=== PATIENT | female | born 1945 | race Caucasian/White ===

== ENCOUNTER 2020-08-17 23:57 | Observation (INO) ==
--- NOTE | 2020-08-18 00:18 | ERNOTE ---
Neuro HPI ER Record Date of Service: 08/18/20 Presenting Symptoms: other - Dizzy and double vision Time Seen by Provider: 08/18/20 00:08 Source: patient Exam Limitations: no limitations Immunizations: IMMUNIZATION HX Immunizations Up to Date Yes History of Influenza Vaccine No Hx Pneumococcal Vaccination No Allergies/Adverse Reactions: Allergies Allergy/AdvReac Type Severity Reaction Status Date / Time codeine [Codeine] AdvReac Mild rash Verified 08/18/20 00:19 Home Medications: HOME MEDICATIONS Sertraline HCl [Zoloft] 150 mg PO DAILY 11/17/12 [Last Taken Unknown] Clonazepam 1 mg PO HS 09/22/19 [Last Taken Unknown] miscellaneous medical supply See Rx Instructions .ROUTE .MEDSUPPLY #1 ea 09/22/19 [Last Taken Unknown] Synthroid 50 mcg tablet 50 mcg PO DAILY #45 tab NS 08/02/20 [Last Taken Unknown] Aspirin [Aspirin Enteric Coated] 325 mg PO DAILY 08/18/20 [Last Taken Unknown] - History of Present Illness Narrative: This patient is a 75-year-old female who arrived by ambulance with dizziness and double vision. She said that all was well tonight until about 1015. She reported that she was eating ice cream with her and felt dizzy and had double vision. She could not tell me how long it lasted. She apparently had gone into the bathroom and was found mumbling in the bathroom. The ambulance was called. She was alert and oriented when they arrived. She had an episode that they described as word salad. She reportedly started talking nonsense and then mumbling. It resolved. She was on the monitor at the time and had no arrhythmia. Her blood sugar was in the 200s. She reports that she is doing fine at this time. She denies fever, cough or cold symptoms. She does not have a headache. She has no vision symptoms at this time. She has no nausea or vomiting. She denies numbness or weakness of the extremities. She had recent stents placed. She has a history of atrial fibrillation. She is currently off of her anticoagulant. Review of Systems - Review of Systems Constitutional: Absent: recent illness, fever EYE: Present: see HPI ENT: Absent: ear pain, nose congestion, nasal drainage, sore throat Respiratory: Absent: shortness of breath, cough Cardiology: Absent: chest pain, palpitations, syncope Gastrointestinal/Abdominal: Absent: nausea, vomiting, diarrhea, abdominal pain Genitourinary: Absent: frequency, pain, dysuria Musculoskeletal: Present: no symptoms reported Skin: Present: no symptoms reported Neurological: Present: dizziness/light-headedness. Absent: headache, weakness, numbness Endocrine: Present: no symptoms reported Hematologic/Lymphatic: Present: no symptoms reported Psych: Present: no symptoms reported Medical History (Last Reviewed 08/18/20 @ 00:16 by Preston Renteria MD) Subarachnoid hemorrhage (Resolved) Stage III chronic kidney disease (Chronic) History of non-ST elevation myocardial infarction (NSTEMI) (Chronic) Pulmonary nodule (Chronic) Onset Date: ~12/14/17 Hypothyroidism (Chronic) Onset Date: Unknown GERD (gastroesophageal reflux disease) (Chronic) Onset Date: Unknown Easy bruising (Chronic) Onset Date: ~06/03/15 Atrial fibrillation (Chronic) Onset Date: ~08/22/17 Allergic rhinitis (Chronic) Onset Date: ~04/10/14 Anticoagulated on warfarin Anxiety Atrial flutter Depression History of cardioversion History of meningitis Surgical History: Surgical History (Last Reviewed 08/18/20 @ 00:16 by Preston Renteria MD) History of arthroscopic knee surgery Onset Date: Unknown bilat History of exploratory laparotomy Onset Date: ~1969 ovarian abscess drainage Hx of cholecystectomy Onset Date: Unknown Family History: Family History (Last Reviewed 08/18/20 @ 00:16 by Preston Renteria MD) Sister Cancer Other No pertinent family history Social History: (Last Reviewed 08/18/20 @ 00:16 by Preston Renteria MD) Social History: Marital status: household members: spouse current occupational status: retired Service: No Tobacco: Smoking Status: Never smoker Alcohol: alcohol intake: current Substance Use: substance use type: does not use Dietary Habits: caffeine: No Physical Exam - Physical Exam General Appearance: Present: wd/wn, alert, no apparent distress Head Exam: Present: normal inspection, no evidence of injury Eye Exam: Normal inspection: bilateral Ears, Nose, Throat: Present: normal ENT inspection Neck: Present: normal inspection, supple. Absent: lymphadenopathy (R), lymphadenopathy (L) Respiratory: Present: no respiratory distress, normal breath sounds, lungs clear Cardiovascular/Chest: Present: regular rate, rhythm, no murmur Gastrointestinal/Abdominal: Present: normal bowel sounds, nontender, nondistended, soft, no organomegaly Extremity Exam: Present: normal inspection, non-tender, normal range of motion, no edema Neurological Exam: Present: alert, oriented, normal mood/affect, no motor/sensory deficits, other - She has no facial weakness or asymmetry. She has no drift of the upper or lower extremities. She has no decrease in continuous still operator strength or push/pull of the feet. Sensation is intact to light touch. Skin Exam: Present: normal color, warm/dry. Absent: skin rash Progress - Date and Time Seen: Date and Time: 08/18/20 01:55 Dr. Gibbs agreed to keep the patient for observation. - Results and Orders Patient's Lab Results:: I have reviewed the patient's lab results. Results and Orders: Laboratory Tests 08/18/20 08/18/20 08/18/20 00:15 00:15 00:37 WBC 7.6 RBC 4.65 Hgb 14.1 Hct 42.6 MCV 91.6 MCH 30.3 MCHC 33.1 RDW 12.3 Plt Count 248 MPV 10.2 Immature Gran % (Auto) 0.40 Immature Gran # (Auto) 0.03 Neutrophils % 47.7 Lymphocytes % 41.2 Monocytes % 7.4 Eosinophils % 2.8 Basophils % 0.5 Nucleated RBC % 0.0 Neutrophils # 3.6 Lymphocytes # 3.12 Monocytes # 0.6 Eosinophils # 0.2 Absolute Basophils 0.0 Sodium 143 H Plasma Sodium 144 H Potassium 3.6 Chloride 107 H Carbon Dioxide 30.2 Anion Gap 9.4 BUN 16 Creatinine 1.06 Est GFR (Non-Af Amer) 54 L BUN/Creatinine Ratio 15.1 Random Glucose 153 H Calcium 9.0 Calcium Adj for Albumin 9.0 Total Bilirubin 0.3 AST 20 ALT 27 Alkaline Phosphatase 110 Total Protein 7.3 Albumin 3.6 Urine Color Yellow Urine Appearance Clear Urine pH 6.5 Ur Specific [place] 1.020 Urine Protein Negative Urine Glucose (UA) Negative Urine Ketones Negative Urine Blood Negative Urine Nitrate Negative Urine Bilirubin Negative Urine Urobilinogen Normal Ur Leukocyte Esterase Negative Urine RBC None seen Urine WBC None seen Ur Epithelial Cells None seen Urine Bacteria None seen Urine Culture Comments No culture indicated - Vital Signs Patient's Vital Signs:: I have reviewed the patient's vital signs. Vital Signs: Vital Signs 08/18/20 00:00 Temperature 36.2 C Pulse Rate 70 Respiratory Rate 14 Blood Pressure 181/75 H O2 Sat by Pulse Oximetry 96 - EKG EKG #1 EKG read: Interp. by me EKG Comments: Atrial paced rhythm Rate 73 Left bundle branch block Compared to an EKG dated 11/15/2019, the rhythm is now paced. - CT/Ultrasound CT/Ultrasound Narrative: CT HEAD WITHOUT FINDINGS: No intracranial mass, midline shift, hydrocephalus, or acute hemorrhage. Mild atrophy-like change. The visualized paranasal sinuses and mastoid air cells are normal. The orbits are unremarkable. No skull fracture. IMPRESSION: 1. No acute intracranial findings - Progress/Reassessment Chief Complaint: Altered Mental Status Departure Clinical Impression: Spell of altered cognition - Departure Disposition: Still a patient Condition: Stable Referrals: Mary Jo Jose DO [Primary Care Provider] -
[2020-08-18 00:22] LABS: Hematocrit 42.6 % (37.0-47.0); Hemoglobin 14.1 gm/dL (12.5-16.0); Mean Cell Volume 91.6 fl (78-100); Mean Corpuscular Hemoglobin 30.3 pg (27-31); Mean Corpuscular Hgb Conc 33.1 g/dl (32-36); Mean Platelet Volume 10.2 fl (8-12.5); Neutrophil # 3.6 K/mm3 (1.3-6.0); Neutrophil % 47.7 % (42-75.0); Platelet Count 248 K/mm3 (150-450); Red Blood Count 4.65 M/mm3 (4.2-5.4); Red Cell Distribution Width 12.3 % (11.5-14.0); White Blood Count 7.6 K/mm3 (4.0-10.5)
[2020-08-18 00:40] LABS: Albumin * 3.6 gm/dl (3.4-5.0); Anion Gap 9.4 mmol/L (6.8-13.8); BUN/Creatinine Ratio 15.1 (9.0-21.6); Bilirubin, Total 0.3 mg/dL (0.0-1.1); Carbon Dioxide 30.2 mmol/L (24-32.6); Potassium 3.6 mmol/L (3.4-4.6); Total Protein 7.3 gm/dL (6.2-8.2)
[2020-08-18 00:57] LABS: Urine Bilirubin Negative (NEGATIVE); Urine Blood Negative /ul (NEGATIVE); Urine Ketone Negative (NEGATIVE); Urine Nitrite Negative (NEGATIVE); Urine Protein Negative (NEGATIVE); Urine Urobilinogen Normal (NORMAL); Urine pH 6.5 pH (5.0-7.0)
[2020-08-18 00:58] LABS: Urine Appearance Clear (CLEAR); Urine Bacteria None Seen; Urine Color Yellow; Urine RBC None Seen /hpf (0-5); Urine WBC None Seen /hpf (0-5)
--- NOTE | 2020-08-18 09:29 | HPDIS ---
Chief Complaint - Chief Complaint Date of Service: 08/18/20 Time of Service: 08:15 Chief Complaint: syncopal episode History of Present Illness: Patient with PMHx of cardiac stent placed last month, afib, CKD, subarachnoid hemorrhage was home and developed sudden dizziness and double vision. Her 's pamphlet distributor found her in the bathroom, and she was speaking nonsense. EMS was called, who also reported word salad. This lasted for about 20 minutes. She had some med adjustments last month with anticoagulants. She's currently on 325 mg aspirin, and will be resuming her eliquis on Aug 24. She has not had this happen in the past. She denies recent fever, CP, SOB, diarrhea, weakness, skin changes. No alcohol intake. Workup in the ED did not find significant abnormality. EKG showed paced rhythm. Her pacemaker company was no t notified of any transmission abnormalities from her pacemaker. COVID negative. On my exam this morning, she is coherent and feels like she is at her baseline, looking forward to going home today. Medical History (Last Reviewed 08/18/20 @ 03:46 by Maude Tinoco RN) Subarachnoid hemorrhage (Resolved) Stage III chronic kidney disease (Chronic) History of non-ST elevation myocardial infarction (NSTEMI) (Chronic) Pulmonary nodule (Chronic) Onset Date: ~12/14/17 Hypothyroidism (Chronic) Onset Date: Unknown GERD (gastroesophageal reflux disease) (Chronic) Onset Date: Unknown Easy bruising (Chronic) Onset Date: ~06/03/15 Atrial fibrillation (Chronic) Onset Date: ~08/22/17 Allergic rhinitis (Chronic) Onset Date: ~04/10/14 Anticoagulated on warfarin Anxiety Atrial flutter Depression History of cardioversion History of meningitis Surgical History: Surgical History (Last Reviewed 08/18/20 @ 03:46 by Maude Tinoco RN) Hx of cardiac pacemaker History of arthroscopic knee surgery Onset Date: Unknown bilat History of exploratory laparotomy Onset Date: ~1969 ovarian abscess drainage Hx of cholecystectomy Onset Date: Unknown Family History: Family History (Last Reviewed 08/18/20 @ 03:46 by Maued Tinoco RN) Sister Cancer Other No pertinent family history Social History: (Last Reviewed 08/18/20 @ 03:46 by Maude Tinoco RN) Social History: Marital status: household members: spouse current occupational status: retired Service: No Tobacco: Smoking Status: Never smoker Alcohol: alcohol intake: current Substance Use: substance use type: does not use Dietary Habits: caffeine: No Review Of Systems (GEN) - Review of Systems Generalized/Overall Review: Absent: Weakness, Fever Respiratory: Absent: Shortness of Breath Cardiac: Absent: Chest Pain, Edema Abdominal: Absent: Vomiting, Diarrhea Genitourinary: Present: No Symptoms Reported Neurological: Present: Other - 20 minutes of confusion and nonsensical words Immunizations: IMMUNIZATION HX Immunizations Up to Date Yes History of Influenza Vaccine No Hx Pneumococcal Vaccination No Allergies/Adverse Reactions: Allergies Allergy/AdvReac Type Severity Reaction Status Date / Time codeine [Codeine] AdvReac Mild rash Verified 08/18/20 00:19 Home Medications: HOME MEDICATIONS Sertraline HCl [Zoloft] 150 mg PO DAILY 11/17/12 [Last Taken Unknown] Clonazepam 1 mg PO HS 09/22/19 [Last Taken Unknown] Synthroid 50 mcg tablet 50 mcg PO DAILY #45 tab NS 08/02/20 [Last Taken Unknown] Aspirin [Aspirin Enteric Coated] 325 mg PO DAILY 08/18/20 [Last Taken Unknown] Clopidogrel Bisulfate [Plavix] 75 mg PO DAILY 08/18/20 [Last Taken Unknown] Lovastatin [Altoprev] 20 mg PO DAILY 08/18/20 [Last Taken Unknown] Exam - Exam Vital Signs: Vital Signs - Last Taken Temp 36.4 C 08/18/20 06:35 Pulse 61 08/18/20 06:35 Resp 16 08/18/20 06:35 BP 138/65 08/18/20 06:35 Pulse Ox 95 08/18/20 06:35 Constitutional: Present: Alert, Oriented x3, Cooperative, No distress, Elderly Eye Exam: bilateral eye: EOMI Respiratory: Present: lungs clear, normal breath sounds Cardiovascular/Chest: Present: regular rate, rhythm Extremity: Absent: lower extremity edema Neurologic: Present: other - clear speech. Absent: facial droop Eye contact: Present: cooperative, good eye contact Diagnostic Studies: Abnormal Lab Results 08/18/20 Range/Units 00:15 Sodium 143 H (132-142) mmol/L Plasma Sodium 144 H (130-142) mmol/L Chloride 107 H (97-106) mmol/L Est GFR (Non-Af Amer) 54 L (60-130) mL/min Random Glucose 153 H (70-110) mg/dL Laboratory Results WBC 7.6 K/mm3 (4.0-10.5) 08/18/20 00:15 RBC 4.65 M/mm3 (4.2-5.4) 08/18/20 00:15 Hgb 14.1 gm/dL (12.5-16.0) 08/18/20 00:15 Hct 42.6 % (37.0-47.0) 08/18/20 00:15 MCV 91.6 fl (78-100) 08/18/20 00:15 MCH 30.3 pg (27-31) 08/18/20 00:15 MCHC 33.1 g/dl (32-36) 08/18/20 00:15 RDW 12.3 % (11.5-14.0) 08/18/20 00:15 Plt Count 248 K/mm3 (150-450) 08/18/20 00:15 MPV 10.2 fl (8-12.5) 08/18/20 00:15 Immature Gran % (Auto) 0.40 % (0.001-0.429) 08/18/20 00:15 Immature Gran # (Auto) 0.03 K/mm3 (0.000-0.0310) 08/18/20 00:15 Neutrophils % 47.7 % (42-75.0) 08/18/20 00:15 Lymphocytes % 41.2 % (20-51) 08/18/20 00:15 Monocytes % 7.4 % (0.0-9) 08/18/20 00:15 Eosinophils % 2.8 % (0.0-3.0) 08/18/20 00:15 Basophils % 0.5 % (0.0-1.0) 08/18/20 00:15 Nucleated RBC % 0.0 k/mm3 (0-1) 08/18/20 00:15 Neutrophils # 3.6 K/mm3 (1.3-6.0) 08/18/20 00:15 Lymphocytes # 3.12 k/mm3 (1.5-3.5) 08/18/20 00:15 Monocytes # 0.6 k/mm3 (0.0-1.0) 08/18/20 00:15 Eosinophils # 0.2 k/mm3 (0.0-0.7) 08/18/20 00:15 Absolute Basophils 0.0 k/mm3 (0.0-0.1) 08/18/20 00:15 Sodium 143 mmol/L (132-142) H 08/18/20 00:15 Plasma Sodium 144 mmol/L (130-142) H 08/18/20 00:15 Potassium 3.6 mmol/L (3.4-4.6) 08/18/20 00:15 Chloride 107 mmol/L (97-106) H 08/18/20 00:15 Carbon Dioxide 30.2 mmol/L (24-32.6) 08/18/20 00:15 Anion Gap 9.4 mmol/L (6.8-13.8) 08/18/20 00:15 BUN 16 mg/dL (3-23) 08/18/20 00:15 Creatinine 1.06 mg/dL (0.4-1.4) 08/18/20 00:15 Est GFR (Non-Af Amer) 54 mL/min (60-130) L 08/18/20 00:15 BUN/Creatinine Ratio 15.1 (9.0-21.6) 08/18/20 00:15 Random Glucose 153 mg/dL (70-110) H 08/18/20 00:15 Calcium 9.0 mg/dL (7.9-10.9) 08/18/20 00:15 Calcium Adj for Albumin 9.0 mg/dL (8.4-10.2) 08/18/20 00:15 Total Bilirubin 0.3 mg/dL (0.0-1.1) 08/18/20 00:15 AST 20 U/L (0-48) 08/18/20 00:15 ALT 27 U/L (19-67) 08/18/20 00:15 Alkaline Phosphatase 110 U/L (50-170) 08/18/20 00:15 Total Protein 7.3 gm/dL (6.2-8.2) 08/18/20 00:15 Albumin 3.6 gm/dl (3.4-5.0) 08/18/20 00:15 Urine Color Yellow 08/18/20 00:37 Urine Appearance Clear (CLEAR) 08/18/20 00:37 Urine pH 6.5 pH (5.0-7.0) 08/18/20 00:37 Ur Specific [place] 1.020 SP.GR. (1.005-1.010) 08/18/20 00:37 Urine Protein Negative mg/dL (NEGATIVE) 08/18/20 00:37 Urine Glucose (UA) Negative mg/dL (NEGATIVE) 08/18/20 00:37 Urine Ketones Negative mg/dL (NEGATIVE) 08/18/20 00:37 Urine Blood Negative /ul (NEGATIVE) 08/18/20 00:37 Urine Nitrate Negative (NEGATIVE) 08/18/20 00:37 Urine Bilirubin Negative mg/dl (NEGATIVE) 08/18/20 00:37 Urine Urobilinogen Normal EU/dl (NORMAL) 08/18/20 00:37 Ur Leukocyte Esterase Negative /ul (NEGATIVE) 08/18/20 00:37 Urine RBC None seen /hpf (0-5) 08/18/20 00:37 Urine WBC None seen /hpf (0-5) 08/18/20 00:37 Ur Epithelial Cells None seen /hpf (0-5) 08/18/20 00:37 Urine Bacteria None seen (NONE) 08/18/20 00:37 Urine Culture Comments No culture indicated 08/18/20 00:37 SARS-CoV-2 (PCR) Not detected (NotDetected) 08/18/20 02:10 Assessment/Plan - Narrative Narrative: Her presentation supports a TIA, and symptoms have resolved. She recently had a stent placed, and is currently taking 325 mg aspirin, and will be resuming her eliquis next week. She also is taking plavix, and will continue. She is appropriately taking a statin, and will not make med changes today. Will continue to ensure BP is controlled. OK for DC today, and follow up with me in the next couple of weeks. - Assessment/Plan (1) TIA (transient ischemic attack) Problem: Acute (2) Spell of altered cognition Problem: Acute (3) Stage III chronic kidney disease Problem: Chronic (4) Hypothyroidism Problem: Chronic Qualifiers: Hypothyroidism type: acquired Qualified Code(s): E03.9 - Hypothyroidism, unspecified (5) GERD (gastroesophageal reflux disease) Problem: Chronic (6) Atrial fibrillation Problem: Chronic Qualifiers: Atrial fibrillation type: unspecified chronic Qualified Code(s): I48.20 - Chronic atrial fibrillation, unspecified (1) TIA (transient ischemic attack) Problem: Resolved (2) Spell of altered cognition Problem: Resolved (3) Stage III chronic kidney disease Problem: Chronic (4) Hypothyroidism Problem: Chronic Qualifiers: Hypothyroidism type: acquired Qualified Code(s): E03.9 - Hypothyroidism, un specified (5) GERD (gastroesophageal reflux disease) Problem: Chronic (6) Atrial fibrillation Problem: Chronic Qualifiers: Atrial fibrillation type: unspecified chronic Qualified Code(s): I48.20 - Chronic atrial fibrillation, unspecified Date of Discharge:: 08/18/20 Hospital Course: see above Procedures Performed: none Results and Findings: Lab Pending Results 08/18/20 00:15: WBC 7.6, RBC 4.65, Hgb 14.1, Hct 42.6, MCV 91.6, MCH 30.3, MCHC 33.1, RDW 12.3, Plt Count 248, MPV 10.2, Immature Gran % (Auto) 0.40, Immature Gran # (Auto) 0.03, Neutrophils % 47.7, Lymphocytes % 41.2, Monocytes % 7.4, Eosinophils % 2.8, Basophils % 0.5, Nucleated RBC % 0.0, Neutrophils # 3.6, Lymphocytes # 3.12, Monocytes # 0.6, Eosinophils # 0.2, Absolute Basophils 0.0 08/18/20 00:15: Sodium 143 H, Plasma Sodium 144 H, Potassium 3.6, Chloride 107 H, Carbon Dioxide 30.2, Anion Gap 9.4, BUN 16, Creatinine 1.06, Est GFR (Non-Af Amer) 54 L, BUN/Creatinine Ratio 15.1, Random Glucose 153 H, Calcium 9.0, Calcium Adj for Albumin 9.0, Total Bilirubin 0.3, AST 20, ALT 27, Alkaline Phosphatase 110, Total Protein 7.3, Albumin 3.6 08/18/20 00:37: Urine Color Yellow, Urine Appearance Clear, Urine pH 6.5, Ur Specific [place] 1.020, Urine Protein Negative, Urine Glucose (UA) Negative, Urine Ketones Negative, Urine Blood Negative, Urine Nitrate Negative, Urine Bilirubin Negative, Urine Urobilinogen Normal, Ur Leukocyte Esterase Negative, Urine RBC None seen, Urine WBC None seen, Ur Epithelial Cells None seen, Urine Bacteria None seen, Urine Culture Comments No culture indicated 08/18/20 02:10: SARS-CoV-2 (PCR) Not detected Discharge Location: Home Disposition: Home self-care Condition: Stable Discharge Activity: Activity as tolerated Discharge Diet: Low fat/chol Referrals: Mary Jo Jose DO [Primary Care Provider] - Two Weeks Complete Home Medications List: Complete Home Medication List: Sertraline HCl [Zoloft] 150 mg PO DAILY 11/17/12 Clonazepam 1 mg PO HS 09/22/19 Synthroid 50 mcg tablet 50 mcg PO DAILY #45 tab NS 08/02/20 Aspirin [Aspirin Enteric Coated] 325 mg PO DAILY 08/18/20 Clopidogrel Bisulfate [Plavix] 75 mg PO DAILY 08/18/20 Lovastatin [Altoprev] 20 mg PO DAILY 08/18/20 Forms: Patient Portal Registration
[2020-08-18] MEDS ORDERED: ASPIRIN 325 MG TABLET.DR PO SCH (10:30)
[2020-08-18] MEDS ORDERED: CLOPIDOGREL BISULFATE 75 MG TABLET PO SCH (12:30)
[2020-08-18] MEDS ORDERED: SIMVASTATIN 10 MG TABLET PO SCH (12:30)
[2020-08-18 13:05] VITALS: BP 130/60
[2020-08-18] MEDS ORDERED: clonazePAM 1 MG TABLET PO SCH (21:00)
[2020-08-19] MEDS ORDERED: LEVOTHYROXINE SODIUM 50 MCG TABLET PO SCH (07:00)
[2020-08-19] MEDS ORDERED: SERTRALINE HCL 50 MG TABLET PO SCH (09:00)
== END 2020-08-18 14:09 | disposition home or self-care (01) ==
LOC: MS 23:57 → ER 23:57 → MS 08-18 03:26
PROVIDERS: ADMIT Family Medicine; ATTEND Family Medicine